=== PATIENT | female | born 1955 | race Caucasian/White ===

== ENCOUNTER 2018-12-10 12:25 | Day surgery (SDC) | payer OTHER ==
[2018-12-10] VITALS (21 sets, daily range): BP systolic 155–180; BP diastolic 59–97; PULSE 58–90; RESP 5–18; Ht 152.4 cm; Wt 66.8 kg
[~2018-12-10] VITALS: Ht 152.4 cm; Wt 66.8 kg
[~2018-12-10 12:25] MED LIST: ACET-141 PO; ACET-2343 PO; ASCO500C7 PO; CRES20 PO; DOCU-144 PO; ENOX40DI14 SC; HYDR-4011 PO; MAGN400O19 PO; MAGN400T28 PO; METO-429 PO; MULT-542 PO; NA P133E10 RC; PANT40TA3 PO; VALS80TA2 PO; ZINC220T3 PO
[2018-12-10] MEDS ORDERED: SOD CHLORIDE 0.9% 1,000 ML IV SCH (13:00)
[2018-12-10] MEDS ORDERED: BUPIVACAINE 0.5% (SDV) 30 ML INJ ONE (17:40)
[2018-12-10] MEDS ORDERED: LIDOCAINE 100 MG SYRINGE ONE (17:56)
[2018-12-10] MEDS ORDERED: PROPOFOL 40 ML ONE (17:56)
[2018-12-10] MEDS ORDERED: CEFAZOLIN 1 GM INJ ONE (18:00)
[2018-12-10] MEDS ORDERED: OXYCODONE/ACETAMINOPHEN (5/325) TAB PO PRN ×2 (18:30)
[2018-12-10] MEDS ORDERED: ONDANSETRON 4 MG INJ IV PRN (18:30)
[2018-12-10] MEDS ORDERED: LABETALOL HCL 20MG INJ IV PRN (18:30)
[2018-12-10] MEDS ORDERED: FENTAnyl 50 MCG/ML VIAL IV PRN ×3 (18:30)
[2018-12-10] MEDS ORDERED: EPHEDrine 25 MG/5 ML SYG IV PRN (18:30)
[2018-12-10] MEDS ORDERED: IPRATROPIUM (NEB) 0.5 MG/2.5 ML AMP HHN PRN (18:30)
[2018-12-10] MEDS ORDERED: FENTAnyl 50 MCG/ML VIAL ONE (18:30)
[2018-12-10] MEDS ORDERED: HYDROmorphONE 1 MG/5 ML IV SYRINGE IV PRN ×3 (18:30)
[2018-12-10] MEDS ORDERED: MEPERIDINE 25 MG INJ IV PRN (18:30)
[2018-12-10] MEDS ORDERED: DIPHENHYDRAMINE 50 MG INJ IV PRN (18:30)
[2018-12-10] MEDS ORDERED: ALBUTEROL 0.083% (NEB) 2.5 MG/3 ML AMP HHN PRN (18:30)
[2018-12-10] MEDS: hydrALAzine 20 MG INJ IV PRN ×2 (19:24→20:27)
== END 2018-12-10 21:45 ==
LOC: SDS 12:25
PROVIDERS: ATTEND Podiatrist Foot & Ankle Surgery
DX: E11.621 Type 2 diabetes mellitus with foot ulcer (principal); E11.40 Type 2 diabetes mellitus with diabetic neuropathy, unspecified; M20.41 Other hammer toe(s) (acquired), right foot; I10 Essential (primary) hypertension; E78.5 Hyperlipidemia, unspecified
CPT/HCPCS: 14040; 28285; 82962; 87070; 87075; 87102; J0360; J0690; J2001; J2405; J3010; L3260; Z7512; Z7610